=== PATIENT | female | born 1975 | race Caucasian/White ===

== ENCOUNTER 2023-02-04 01:10 | Outpatient (CLI) | payer OTHER, SELFPAY ==
--- NOTE | 2023-02-04 07:30 | DI.MAMMO_ITS ---
Exam(s) MAMMO SCREENING EXAM: MAMMO SCREENING CLINICAL HISTORY: screening,Z12.39 TECHNIQUE: Bilateral full field digital CC and MLO mammographic images were obtained with 3D tomosyn thesis and utilizing computer aided detection (CAD). COMPARISON: Available for comparison. FINDINGS: Masses/Architectural Distortion: None seen. Microcalcifications: No suspicious pleomorphic-type are seen. Skin Thickening/Nipple Retraction: None. IMPRESSION: 1. No significant interval change with no specific features of malignancy noted. 2. Unless there is more urgent need, screening mammography is recommended, as per [employer] guidelines. BI-RADS Category 1 - Negative Breast Density - Category B - Scattered areas of fibroglandular density Breast density category C or D implies that the patient has dense breast tissue. Dense breast tissue is very common and is not abnormal but dense breast tissue can make it harder to find cancer on a ma mmogram. Also, dense breast tissue may increase their breast cancer risk. This information about the result of the mammogram report was provided to the patient to raise their awareness. Use this report when you speak with the patient about their risks for breast cancer, which includes their family hist ory. At that time, you may recommend for more screening tests (Ultrasound or MRI) as they might be us eful based on their risk. A negative radiographic report should not delay biopsy if a dominant or clinically suspicious mass is present. Up to ten percent of cancers are not identified on mammography. A negative report may reinforce clinical impression. Adenosis and dense breasts may obscure an underlying neoplasm. False positive reports average 6 to 10%. Patient will receive a letter notifying them of these results.
== END 2023-02-04 01:30 ==
LOC: DI 01:11
PROVIDERS: PCP Nurse Practitioner Family; Visit Provider Nurse Practitioner Family
DX: Z12.31 Encounter for screening mammogram for malignant neoplasm of breast (principal)
CPT/HCPCS: 77063; 77067

== ENCOUNTER 2023-02-16 01:09 | Outpatient (CLI) | payer OTHER, SELFPAY ==
--- NOTE | 2023-02-16 07:00 | DI.MRI_ITS ---
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 CONTRAST MATERIAL: IV Contrast: 14 mL of Dotarem contrast administered. FINDINGS: Bones: There is no fracture or contusion pattern. No significant joint effusion or labral injury is present. No bone marrow edema is seen. The SI joints and symphysis pubis are well maintained. Soft tissues: Intrapelvic structures demonstrate no significant abnormality. Previously noted urethra l diverticula are no longer visible. There is no evidence of adjacent inflammation or abscess. No new fluid collections. Bladder appears normal. The cervix is unremarkable. Patient is status post hyster ectomy. There is no evidence of suspicious enhancement. IMPRESSION: No evidence of residual or recurrent urethral diverticula. No evidence of periurethral abscess. DATA REPOSITORY:
[2023-02-16 09:06] LABS: Abs Immature Grans 0.07 10^3/uL (0.0-0.06); Absolute Basophil Count 0.05 10^3/uL (0.0-0.2); Absolute Eosinophil Count 0.29 10^3/uL (0.0-0.7); Absolute Lymphocyte Count 2.91 10^3/uL (1.2-3.4); Absolute Monocyte Count 0.71 10^3/uL (0.1-0.8); Absolute Neutrophil Count 5.49 10^3/uL (1.2-6.7); Basophils % 0.5; HCT 44.9 % (36.0-46.0); Immature Grans % 0.7; Lymphocytes % 30.6; MCH 29.1 pg (27.0-33.0); MCHC 33.4 % (32.0-36.0); MCV 87 fL (80-95); MPV 10.6 fL (8.0-11.0); Monocytes % 7.5; Neutrophils % 57.7; Platelet Count 216 10^3/uL (130-400); RBC 5.16 10^6/uL (3.93-5.22); RDW 12.6 % (11.7-14.6); RDW-SD 40.1 fL; WBC 9.52 10^3/uL (4.4-10.8)
[2023-02-16 09:18] LABS: Hemoglobin A1C 6.7 % (<5.7)
[2023-02-16 09:32] LABS: ALT 29 U/L (14-59); AST 19 U/L (15-37); Albumin 4.1 g/dL (3.4-5.0); Alkaline Phosphatase 63 U/L (46-116); Anion Gap 8.1 mmol/L (3-11); BUN 12 mg/dL (7-18); Bilirubin, Total 0.7 mg/dL (0.2-1.0); CO2 25.9 mmol/L (21.0-32.0); CREATININE 0.8 mg/dL (0.55-1.02); Calcium 9.3 mg/dL (8.5-10.1); Chloride 107 mmol/L (98-107); Estimated GFR 91.97 (mL/min/1.73m2); Glucose 120 mg/dL (74-106); Potassium 4.6 mmol/L (3.5-5.1); Sodium 141 mmol/L (136-145); TSH (W/Ref FT4) 0.81 uIU/mL (0.36-3.74)
[2023-02-16] MEDS: Gadoterate meglumine 20 ML SYRINGE 14 ML IVP (09:39)
[2023-02-16] MEDS: Normal Saline Flush 10 ML SYR IVP (09:39)
[2023-02-17 10:07] LABS: Calculated LDL 174 mg/dL (<100); Cholesterol 252 mg/dL (<200); HDL Cholesterol 49 mg/dL (40-60); Triglyceride 149 mg/dL (<150)
[2023-02-17 13:13] LABS: Lab Add On Test DONE
== END 2023-02-16 01:29 ==
LOC: DI 01:09
PROVIDERS: PCP Nurse Practitioner Family; Visit Provider Nurse Practitioner Family
DX: N36.1 Urethral diverticulum (principal); Z90.710 Acquired absence of both cervix and uterus; R73.03 Prediabetes; L40.9 Psoriasis, unspecified; R00.0 Tachycardia, unspecified; E78.5 Hyperlipidemia, unspecified
CPT/HCPCS: 72197; 80053; 80061; 83036; 84443; 85025

== ENCOUNTER 2023-08-05 21:22 | Outpatient (REF) | payer OTHER, SELFPAY ==
[2023-08-05 08:39] LABS: Hemoglobin A1C 6.2 % (<5.7)
[2023-08-05 08:40] LABS: Calculated LDL 145 mg/dL (<100); Cholesterol 237 mg/dL (<200); HDL Cholesterol 48 mg/dL (40-60); Triglyceride 222 mg/dL (<150)
== END 2023-08-05 21:23 | disposition home or self-care (01) ==
LOC: LBN 21:22
PROVIDERS: PCP Nurse Practitioner Family; Visit Provider Nurse Practitioner Family
DX: E11.9 Type 2 diabetes mellitus without complications (principal); E78.5 Hyperlipidemia, unspecified
CPT/HCPCS: 80061; 83036

== ENCOUNTER 2024-12-21 01:23 | Outpatient (CLI) | payer OTHER, SELFPAY ==
[2024-12-21 12:43] LABS: Abs Immature Grans 0.07 10^3/uL (0.0-0.06); Absolute Basophil Count 0.09 10^3/uL (0.0-0.2); Absolute Eosinophil Count 0.28 10^3/uL (0.0-0.7); Absolute Lymphocyte Count 2.81 10^3/uL (1.2-3.4); Absolute Monocyte Count 0.68 10^3/uL (0.1-0.8); Absolute Neutrophil Count 7.01 10^3/uL (1.2-6.7); Basophils % 0.8 %; Eosinophils % 2.6 %; HGB 15.3 g/dL (11.2-15.7); Immature Grans % 0.6 %; Lymphocytes % 25.7 %; MCH 29.4 pg (27.0-33.0); MCHC 32.6 % (32.0-36.0); MCV 90 fL (80-95); MPV 10.9 fL (8.0-11.0); Monocytes % 6.2 %; Neutrophils % 64.1 %; Platelet Count 243 10^3/uL (130-400); RDW 12.8 % (11.7-14.6); RDW-SD 42.4 fL; WBC 10.94 10^3/uL (4.4-10.8)
[2024-12-21 12:56] LABS: ALT 22 U/L (14-59); AST 17 U/L (15-37); Albumin 3.9 g/dL (3.4-5.0); Alkaline Phosphatase 69 U/L (46-116); Anion Gap 7.6 mmol/L (3-11); BUN 10 mg/dL (7-18); Bilirubin, Total 0.57 mg/dL (0.2-1.0); CO2 25.4 mmol/L (21.0-32.0); CREATININE 0.7 mg/dL (0.55-1.02); Calcium 9.3 mg/dL (8.5-10.1); Calculated LDL 145 mg/dL (<100); Chloride 106 mmol/L (98-107); Cholesterol 224 mg/dL (<200); Estimated GFR 106.62 (mL/min/1.73m2); Glucose 122 mg/dL (74-106); HDL Cholesterol 46 mg/dL (40-60); Potassium 4.3 mmol/L (3.5-5.1); Sodium 139 mmol/L (136-145); Total Protein 7.1 g/dL (6.4-8.2); Triglyceride 168 mg/dL (<150)
[2024-12-21 19:20] LABS: HIV-1/2 Ag & Ab Screen Negative (Negative)
[2024-12-21 20:43] LABS: Hepatitis C Ab w Rflx HCV PCR Negative (Negative)
== END 2024-12-21 01:24 | disposition home or self-care (01) ==
LOC: LOS 01:23
PROVIDERS: PCP Nurse Practitioner Family; Visit Provider Nurse Practitioner Family
DX: Z11.59 Encounter for screening for other viral diseases (principal); L40.9 Psoriasis, unspecified; E11.9 Type 2 diabetes mellitus without complications; Z11.4 Encounter for screening for human immunodeficiency virus [HIV]
CPT/HCPCS: 36415; 80053; 80061; 86803; 87389; 85025

== ENCOUNTER 2024-12-21 13:52 | Outpatient (REF) | payer OTHER, SELFPAY ==
[2024-12-21 13:48] LABS: Microalb ug/mg Crea 9.3 ug/mg Cr
== END 2024-12-21 13:53 | disposition home or self-care (01) ==
LOC: NCHCN 13:52
PROVIDERS: PCP Nurse Practitioner Family; Visit Provider Nurse Practitioner Family
DX: E11.9 Type 2 diabetes mellitus without complications (principal)
CPT/HCPCS: 82043; 82570

== ENCOUNTER 2025-01-02 11:31 | Outpatient (CLI) | payer OTHER, SELFPAY ==
--- NOTE | 2025-01-02 11:15 | DI.RAD_ITS ---
Exam(s) XR CHEST 2V PA LATERAL EXAM: XR CHEST 2V PA LATERAL CLINICAL HISTORY: cough, recent abx for clinical pneumonia R05.9 TECHNIQUE: 2D digital imaging was performed of the chest. Two images were obtained. PA and lateral views were obtained. COMPARISON: No exams were available for comparison FINDINGS: MEDIASTINUM: Normal. HEART: Normal. PULMONARY VASCULATURE: Normal. LUNGS: Clear. PLEURAL SPACE: No pleural effusion or pneumothorax. BONE:Within normal limits for the patient's age. OTHER FINDINGS:Normal. IMPRESSION: No acute pulmonary findings. DATA REPOSITORY: RADIATION DOSE DELIVERED:
== END 2025-01-02 11:51 ==
LOC: DI 11:32
PROVIDERS: PCP Nurse Practitioner Family; Visit Provider Nurse Practitioner Family
DX: R05.9 Cough, unspecified (principal)
CPT/HCPCS: 71046

== ENCOUNTER 2025-01-10 01:48 | Outpatient (CLI) | payer OTHER, SELFPAY ==
--- NOTE | 2025-01-10 07:47 | DI.MAMMO_ITS ---
Exam(s) MAMMO SCREENING EXAM: MAMMO SCREENING CLINICAL HISTORY: screening,z12.39 TECHNIQUE: Mammograms were interpreted according to the usual protocol including computer analysis w [employer] CAD system, tomosynthesis and C-view imaging. COMPARISON: 2017 through 2022 FINDINGS: The breasts are composed of scattered fibroglandular densities, Breast Density category B. No suspicious masses or suspicious microcalcifications are seen. No skin thickening or abnormal axillary lymph nodes are seen. There has been no significant change from prior exams. IMPRESSION: BI-RADS Category 1, Negative mammogram Yearly screening mammography is recommended. Breast Density - Category B, scattered fibroglandular densities. A negative radiographic report should not delay biopsy if a dominant or clinically suspicious mass is present. Up to ten percent of cancers are not identified on mammography. A negative report may reinforce clinical impression. Adenosis and dense breasts may obscure an underlying neoplasm. False positive reports average 6 to 10%. Patient will receive a letter notifying them of these results.
== END 2025-01-10 02:08 ==
LOC: DI 01:48
PROVIDERS: PCP Nurse Practitioner Family; Visit Provider Nurse Practitioner Family
DX: Z12.31 Encounter for screening mammogram for malignant neoplasm of breast (principal); R92.323 Mammographic fibroglandular density, bilateral breasts
CPT/HCPCS: 77063; 77067

== ENCOUNTER 2025-05-02 11:34 | Outpatient (CLI) | payer OTHER, SELFPAY ==
[2025-05-02 11:44] LABS: Abs Immature Grans 0.02 10^3/uL (0.0-0.06); Absolute Basophil Count 0.07 10^3/uL (0.0-0.2); Absolute Eosinophil Count 0.18 10^3/uL (0.0-0.7); Absolute Lymphocyte Count 3.21 10^3/uL (1.2-3.4); Absolute Monocyte Count 0.61 10^3/uL (0.1-0.8); Absolute Neutrophil Count 5.03 10^3/uL (1.2-6.7); Basophils % 0.8 %; HCT 45.8 % (36.0-46.0); HGB 15.3 g/dL (11.2-15.7); Immature Grans % 0.2 %; Lymphocytes % 35.2 %; MCH 29.5 pg (27.0-33.0); MCHC 33.4 % (32.0-36.0); MCV 88 fL (80-95); MPV 10.7 fL (8.0-11.0); Monocytes % 6.7 %; Neutrophils % 55.1 %; Platelet Count 211 10^3/uL (130-400); RBC 5.19 10^6/uL (3.93-5.22); RDW 12.2 % (11.7-14.6); RDW-SD 39.8 fL; WBC 9.12 10^3/uL (4.4-10.8)
[2025-05-02 12:36] LABS: ALT 42 U/L (14-59); AST 24 U/L (15-37); Albumin 4.1 g/dL (3.4-5.0); Alkaline Phosphatase 70 U/L (46-116); Anion Gap 7.9 mmol/L (3-11); BUN 9 mg/dL (7-18); Bilirubin, Total 0.7 mg/dL (0.2-1.0); CO2 29.1 mmol/L (21.0-32.0); Calcium 9.2 mg/dL (8.5-10.1); Chloride 103 mmol/L (98-107); Glucose 124 mg/dL (74-106); Lipase 46 U/L (<78); Potassium 4.1 mmol/L (3.5-5.1); Sodium 140 mmol/L (136-145); Total Protein 7.3 g/dL (6.4-8.2)
[2025-05-02 13:49] LABS: CREATININE 0.6 mg/dL (0.55-1.02); Estimated GFR 110.65 (mL/min/1.73m2)
[2025-05-03 15:39] LABS: Amylase 60 U/L (25-115)
== END 2025-05-02 11:35 | disposition home or self-care (01) ==
LOC: LBO 11:35
PROVIDERS: PCP Nurse Practitioner Family; Visit Provider Dermatology
DX: K59.00 Constipation, unspecified (principal); R10.9 Unspecified abdominal pain; G89.29 Other chronic pain
CPT/HCPCS: 36415; 80053; 83690; 82150; 85025

== ENCOUNTER 2025-05-20 06:07 | Day surgery (SDC) | payer OTHER, SELFPAY ==
[2025-05-20 06:38] VITALS: BP 110/70; PULSE 94; RESP 16; TEMP 36.6; O2SAT 97
[2025-05-20] MEDS: Na Phosphate Enema-Adult 133 ML BTL PR (06:52)
[2025-05-20] MEDS: Lactated Ringers 1,000 ML 80 ML IV (07:11)
--- NOTE | 2025-05-20 07:23 | W.ANESPRE ---
General Info Date of Service Date Performed: 05/20/25 Height: 5 ft 6 in Weight: 76.8 kg Body Mass Index (BMI): 27.3 Surgical Procedure: Operation Date: 05/20/25 07:40 Proposed Procedure Side Surgeon p Exam Under Anesthesia, External Hemorrhoids, ? Anal Fissure Edmund Morrow MD Meds Allergies and Home Medications Allergies Allergy/AdvReac Type Severity Reaction Status Date / Time adalimumab (From Humira) Allergy Unknown rash Verified 05/20/25 06:34 pollen extracts Allergy Unknown Swelling/Ed Verified 05/20/25 06:34 brooke risankizumab-rzaa (From Allergy Other (See Verified 05/15/25 11:13 Skyrizi) Comment) amoxicillin (From Augmentin) AdvReac Severe Hives Verified 05/15/25 11:13 clavulanic acid (From AdvReac Severe Hives Verified 05/15/25 11:13 Augmentin) Home Medication ?Medication ?Instructions ?Recorded estradiol 1 mg tablet 1 mg PO DAILY #90 tabs 12/21/24 metoprolol succinate 25 mg 25 mg PO DAILY #90 tabs 12/21/24 tablet,extended release 24 hr rosuvastatin 10 mg tablet 10 mg PO DAILY #90 tabs 12/23/24 albuterol sulfate 90 mcg/actuation 2 inh inhalation Q6H PRN shortness 01/02/25 aerosol inhaler of breath or wheezing #18 grams apremilast 30 mg tablet (Otezla) 30 mg PO BID 04/10/25 docusate sodium 100 mg capsule 100 mg PO DAILY 05/15/25 (Colace) Current Visit Medications: Current Medications Generic Name Dose Route Start Last Admin Trade Name Devika PRN Reason Stop Dose Admin Ringer's Solution 1,000 mls @ 80 mls/hr 05/20/25 06:00 05/20/25 07:11 IV 05/20/25 23:59 80 mls/hr INFUSION REKHA Administration IV Miscellaneous Supplies 1 each 05/20/25 06:00 Iv Access IV 05/20/25 23:59 DIRECTED REKHA Sodium Biphosphate/Sodium Phosphate 133 ml 05/20/25 06:00 05/20/25 06:52 Na Phosphate Enema-Adult 133 Ml Btl NE 05/20/25 23:59 2 btl DIRECTED REKHA Administration Sodium Chloride 0 ml 05/20/25 06:00 Normal Saline Flush 10 Ml Syr IV 05/20/25 23:59 PRN PRN Sodium Chloride 0 ml 05/20/25 06:00 Normal Saline 10 Ml Vial IJ 05/20/25 23:59 DIRECTED PRN Sterile Water 0 ml 05/20/25 06:00 Water,Injection,Sterile 10 Ml Vial IJ 05/20/25 23:59 DIRECTED PRN PFSH Active Problems Active Problems: Problem Status Onset Code Nasal vestibulitis Acute J34.89 Type 2 diabetes mellitus Chronic E11.9 Psoriasis Chronic L40.9 Hyperlipidemia Chronic E78.5 Irritable bowel syndrome Chronic K58.9 Internal hemorrhoids Chronic K64.8 Rectal bleeding Chronic K62.5 Sinus tachycardia Chronic R00.0 Surgical menopause on hormone replacement therapy Chronic E89.40, Z79.890 Allergic rhinitis Chronic J30.9 Chronic pain of right wrist Chronic M25.531, G89.29 Medical History Medical History Urethral diverticulum Surgical History Surgical History History of colonoscopy History of rectal surgery hemorrhoid banding S/P right oophorectomy (~2001) S/P laparoscopic hysterectomy (~2001) with right oophrectomy History of bilateral tubal ligation S/P left oophorectomy (~2000) S/P urological surgery (01/01/21) Excision of urethral diverticulum S/P excision of lipoma S/P medial meniscus repair of left knee H/O section History of carpal tunnel surgery Bilateral Tobacco Smoking/Tobacco Use Status: Former Tobacco Use Passive smoking exposure: Yes Second hand exposure: Yes (As a child) Alcohol Alcohol Intake: current Alcohol intake frequency: a few times a month Alcohol type: beer, wine and hard liquor Details: 6 or more drinks monthly or less Substance Use Substance use: Never Substance use type: does not use Prental History History 2 Para 2 Hx # Term Pregnancies Multiple births Hx # Pregnancies Ectopic pregnancies AB induced Hx Number of Living Children 2 AB spontaneous Vital Signs and Lab Results Vital Signs Most Recent Vital Signs in EMR: Most Recent Vital Signs Temp Pulse Resp BP Pulse Ox 36.6 C 94 H 16 110/70 97 05/20/25 06:38 05/20/25 06:38 05/20/25 06:38 05/20/25 06:38 05/20/25 06:38 Lab Results Complete Blood Count: WBC, (4.4-10.8) 9.12 10^3/uL 05/02/25, 11:30 RBC, (3.93-5.22) 5.19 10^6/uL 05/02/25, 11:30 Hgb, (11.2-15.7) 15.3 g/dL 05/02/25, 11:30 Hct, (36.0-46.0) 45.8 % 05/02/25, 11:30 Plt Count, (130-400) 211 10^3/uL 05/02/25, 11:30 Complete Metabolic Panel: Sodium, (136-145) 140 mmol/L 05/02/25, 11:30 Potassium, (3.5-5.1) 4.1 mmol/L 05/02/25, 11:30 Chloride, (98-107) 103 mmol/L 05/02/25, 11:30 Carbon Dioxide, (21.0-32.0) 29.1 mmol/L 05/02/25, 11:30 BUN, (7-18) 9 mg/dL 05/02/25, 11:30 Creatinine, (0.55-1.02) 0.6 mg/dL 05/02/25, 11:30 Est GFR (CKD-EPI 2020), (mL/min/1.73m2) 110.65 05/02/25, 11:30 Calcium, (8.5-10.1) 9.2 mg/dL 05/02/25, 11:30 Albumin, (3.4-5.0) 4.1 g/dL 05/02/25, 11:30 Glucose, (74-106) 124 mg/dL H 05/02/25, 11:30 Liver Function Panel: ALT, (14-59) 42 U/L 05/02/25, 11:30 AST, (15-37) 24 U/L 05/02/25, 11:30 Pancreas Panel: Amylase, (25-115) 60 U/L 05/02/25, 11:30 Lipase, (<78) 46 U/L 05/02/25, 11:30 Anesthesia Assessment and Plan Anesthesia History Personal History: No History of Anesthesia Complications Family History: No Family History of Anesthesia Complications Exercise Tolerance Exercise Tolerance: Metabolic Equivalents>4 Pertinent Negatives Pertinent Negatives: No Symptoms of GERD Cardiac & Pulmonary Exam Cardiac Exam: Normal S1/S2 Heart Sounds Pulmonary Exam: Clear Bilateral Breath Sounds Implantable Cardiac Device Does patient have a Pacemaker or an ICD?: No Airway Exam Known Difficult Airway: No Mallampati Class: 2 Mouth Opening: Normal (> 3cm) Thyromental Distance: Greater than 3 cm Neck Range of Motion: Full ROM Neck Circumference: Normal Teeth Condition: Normal Dentition ASA Classification ASA Score: ASA 2 Emergency Case?: No NPO Status NPO Status: NPO Clears >2 hours, Solids >8 hours Status Status: Not Relevant due to Medical History (Hysterectomy) Anesthesia Plan Resuscitation Status: Full Code Anesthesia Technique: General Anesthesia Airway Planned: Natural Airway Monitors Used: Standard Monitors
[2025-05-20 07:25] VITALS: BMI 27.3
--- NOTE | 2025-05-20 08:05 | ROE_ITS ---
Operative Note Operative Note Refer to Anesthesia Record Procedure Description: PROCEDURES PERFORMED: 1. Exam under anesthesia PREOPERATIVE DIAGNOSIS: anal fissure POSTOPERATIVE DIAGNOSIS: anal fistula and anal fissure, minimal grade 1 internal hemorrhoids. SURGEON: Charlee Morrow MD INDICATION FOR PROCEDURE: The patient is a 49 yo woman with long-standing autoimmune conditions who has had anorectal bleeding for years with no definitive diagnosis. Over the last few months, she went off of her immunosuppressive medications for respiratory problems and then developed perianal discomfort which is a new symptom for her. She has also developed a lump in this area as well. Paradoxically, the bleeding has susbsided it would seem. FINDINGS: In the posterior midline there is some heaped up perianal tissue. This is not an external hemorrhoid but rather inflamed/engorged tissue overlying/surrounding an obvious fissure which is pretty far out/distal on the anoderm. There is no lesion within the anal canal itself but there does appear to be a fistula?like connection between the external anoderm defect and an internal opening near the dentate line. Pressure along this area does produce some mild pus?like discharge from both openings external and internal. SURVEILLANCE interval/FOLLOW-UP: Will prescribe a fissure cream. Will see when she is getting back on immunosuppressant medications. I am definitely concerned that this could be a Crohn's/inflammatory bowel disease related lesion. I think she needs to have a colonoscopy to see if we can get a diagnosis with biopsies elsewhere in her colon. SPECIMENS: None EBL: Minimal COMPLICATIONS: None Procedure in detail: The patient gave written consent and was in agreement with the indications, the potential risks as well as the benefits of the procedure. She was taken to the endoscopy suite/OR for exam under anesthesia. A timeout was performed and when we were all in agreement we began the procedure. Anesthesia was given to her and she tolerated it well. She was in left lateral decubitus position and I examined her perianal area. In the posterior midline is heaped up anoderm tissue. Gentle spreading of this tissue reveals a fissure underneath and within. It does appear to have a tunnel/pit to it, suspicious in appearance for a possible fistula. Next, A well?lubricated anoscope was gently introduced. The anal canal was carefully inspected and appeared normal. Mild/minimal internal hemorrhoid disease was visible at all 3 columns. In the posterior midline at/near the dentate line is a small opening consistent with the internal connection of the fistula. Gentle pressure of the anal canal produces some mucus/pus?appearing discharge from both aspects external and internal. I decided against any internal hemorrhoid banding considering the mild appearan ce of the disease. Further, hemorrhoid disease is NOT the cause of her issue. I did not biopsy the openings of this lesion considering it has only been going on for a few weeks and I worry about the possibility of making this acutely worse when it actually appears to be healing. That being said, if a fistula tract does heal over completely, the risks and benefits of surgical intervention will have to be carefully weighed in consideration with likely inflammatory bowel disease and/or immuno-suppressing medications. She tolerated the procedure well and she was taken to the PACU/day surgery in hemodynamically stable condition. Date of Procedure: 05/20/25
--- NOTE | 2025-05-20 08:28 | W.ANESPOSTOP ---
Postoperative Evaluation Date, Time and Location Date Performed: 05/20/25 Time Performed: 08:28 Patient Location: Day Surgery Unit Vital Signs Most Recent Imported Vital Signs: Most Recent Vital Signs Temp Pulse Resp BP Pulse Ox 36.6 C 94 H 16 110/70 97 05/20/25 06:38 05/20/25 06:38 05/20/25 06:38 05/20/25 06:38 05/20/25 06:38 Pain Score Most Recent Pain Score: Most Recent Pain Score Pain Level 3 05/20/25 06:38 Assessment Mental Status: Awake (Alert & Oriented to Patient Baseline) Airway and Respiratory Function: Patent airway with normal (patient baseline) respiratory exam Cardiovascular Function: Hemodynamically Stable Hydration Status: Adequately Hydrated Nausea & Vomiting: No Nausea or Vomiting Pain: Pt. Denies Any Pain Peripheral Nerve Block: Patient did not receive a nerve block
--- NOTE | 2025-05-20 08:40 | W.PM.DSUDISC ---
Date of service: 05/20/25 Discharge Plan Disposition Patient Disposition: Home Condition: Good Discharge Details Attending Provider: Edmund Morrow Primary Care Provider: Mary Alice Rosen Home Meds and New Rx's Prescriptions: No Action metoprolol succinate 25 mg tablet extended release 24 hr 25 mg PO DAILY Qty: 90 3RF estradiol 1 mg tablet 1 mg PO DAILY Qty: 90 3RF Otezla 30 mg tablet 30 mg PO BID rosuvastatin 10 mg tablet 10 mg PO DAILY Qty: 90 3RF albuterol sulfate 90 mcg/actuation HFA aerosol inhaler 2 inh inhalation Q6H PRN (Reason: shortness of breath or wheezing) Qty: 18 4RF docusate sodium [Colace] 100 mg capsule 100 mg PO DAILY Discharge Instructions Additional Instructions: FINDINGS: You do have a fissure and further, it looks like the fissure has 2 openings, 1 on the inside and 1 on the outside which is what we call a fistula. This does not necessarily mean you have inflammatory bowel disease/Crohn's disease but it is a very common condition of those. There is something called fistulizing Crohn's disease and I wonder if this is happening because you have been off of your usual immunosuppressive medication following your respiratory problems. We will prescribe some anal fissure cream for a month or 2 to see if this helps at all and at the same time, you can consider your immunosuppressant medication options. I do think it is imperative that we do a colonoscopy at some point in the near future for diagnostic purposes. Activity:: Activity as Tolerated Diet:: As Tolerated
[2025-05-20 08:43] VITALS: BP 110/70; PULSE 94; RESP 16; TEMP 36.6; O2SAT 97
[2025-05-20 09:14] VITALS: BP 114/77; PULSE 83; RESP 16; TEMP 36.4; O2SAT 97
== END 2025-05-20 06:08 | disposition home or self-care (01) ==
PROVIDERS: PCP Nurse Practitioner Family; Visit Provider Student in an Organized Health Care Education/Training Program
PROC: (CPT 45990; principal; 2025-05-20 07:30)
DX: K60.2 Anal fissure, unspecified (principal); K60.50 Anorectal fistula, unspecified; K64.0 First degree hemorrhoids
CPT/HCPCS: 45990; J2003; J2704; J3010

== ENCOUNTER 2025-06-14 12:30 | Outpatient (CLI) | payer SELFPAY ==
[2025-06-17 13:07] LABS: TB Interpretation Negative (Negative); TB1 Ag minus Nil 0.00 IU/mL; TB2 Ag minus Nil 0.00 IU/mL
== END 2025-06-14 12:31 | disposition home or self-care (01) ==
LOC: LBO 07-11 12:31
PROVIDERS: PCP Family Medicine; Visit Provider Nurse Practitioner Family
DX: Z02.1 Encounter for pre-employment examination (principal)
CPT/HCPCS: 86480

== ENCOUNTER 2025-06-28 07:32 | Day surgery (SDC) | payer OTHER, SELFPAY ==
[2025-06-28 08:04] VITALS: BP 117/75; PULSE 84; RESP 16; TEMP 36.3; O2SAT 98
--- NOTE | 2025-06-28 08:40 | W.ANESPRE ---
General Info Date of Service Date Performed: 06/28/25 Height: 5 ft 6 in Weight: 76.9 kg Body Mass Index (BMI): 27.3 Surgical Procedure: Operation Date: 06/28/25 08:55 Proposed Procedure Side Surgeon p Colonoscopy/Gastroscopy Emdund Morrow MD s Fisulotomy/ectomy, EUA Edmund Morrow MD Meds Allergies and Home Medications Allergies Allergy/AdvReac Type Severity Reaction Status Date / Time adalimumab (From Humira) Allergy Unknown rash Verified 06/28/25 07:58 pollen extracts Allergy Unknown Swelling/Ed Verified 06/28/25 07:58 brooke risankizumab-rzaa (From Allergy Other (See Verified 06/28/25 07:58 Skyrizi) Comment) amoxicillin (From Augmentin) AdvReac Severe Hives Verified 06/28/25 07:58 clavulanic acid (From AdvReac Severe Hives Verified 06/28/25 07:58 Augmentin) Home Medication ?Medication ?Instructions ?Recorded estradiol 1 mg tablet 1 mg PO DAILY #90 tabs 12/21/24 metoprolol succinate 25 mg 25 mg PO DAILY #90 tabs 12/21/24 tablet,extended release 24 hr rosuvastatin 10 mg tablet 10 mg PO DAILY #90 tabs 12/23/24 albuterol sulfate 90 mcg/actuation 2 inh inhalation Q6H PRN shortness 01/02/25 aerosol inhaler of breath or wheezing #18 grams apremilast 30 mg tablet (Otezla) 30 mg PO BID 04/10/25 docusate sodium 100 mg capsule 100 mg PO DAILY 05/15/25 (Colace) cetirizine 10 mg capsule (Allergy 10 mg PO ONCE 06/28/25 Relief (cetirizine)) Current Visit Medications: Current Medications Generic Name Dose Route Start Last Admin Trade Name Freq PRN Reason Stop Dose Admin Ringer's Solution 1,000 mls @ 80 mls/hr 06/28/25 06:00 IV 06/28/25 23:59 INFUSION REKHA IV Miscellaneous Supplies 1 each 06/28/25 06:00 Iv Access IV 06/28/25 23:59 DIRECTED REKHA Sodium Chloride 0 ml 06/28/25 06:00 Normal Saline Flush 10 Ml Syr IV 06/28/25 23:59 PRN PRN Sodium Chloride 0 ml 06/28/25 06:00 Normal Saline 10 Ml Vial IJ 06/28/25 23:59 DIRECTED PRN Sterile Water 0 ml 06/28/25 06:00 Water,Injection,Sterile 10 Ml Vial IJ 06/28/25 23:59 DIRECTED PRN PFSH Active Problems Active Problems: Problem Status Onset Code Nasal vestibulitis Acute J34.89 Type 2 diabetes mellitus Chronic E11.9 Psoriasis Chronic L40.9 Hyperlipidemia Chronic E78.5 Irritable bowel syndrome Chronic K58.9 Internal hemorrhoids Chronic K64.8 Rectal bleeding Chronic K62.5 Sinus tachycardia Chronic R00.0 Surgical menopause on hormone replacement therapy Chronic E89.40, Z79.890 Allergic rhinitis Chronic J30.9 Chronic pain of right wrist Chronic M25.531, G89.29 Medical History Medical History Urethral diverticulum Surgical History Surgical History History of colonoscopy History of rectal surgery hemorrhoid banding S/P right oophorectomy (~2001) S/P laparoscopic hysterectomy (~2001) with right oophrectomy History of bilateral tubal ligation S/P left oophorectomy (~2000) S/P urological surgery (01/01/21) Excision of urethral diverticulum S/P excision of lipoma S/P medial meniscus repair of left knee H/O section History of carpal tunnel surgery Bilateral Tobacco Smoking/Tobacco Use Status: Former Tobacco Use Passive smoking exposure: Yes Second hand exposure: Yes (As a child) Alcohol Alcohol Intake: current Alcohol intake frequency: a few times a month Alcohol type: beer, wine and hard liquor Details: 6 or more drinks monthly or less Substance Use Substance use: Never Substance use type: does not use Prental History History 2 Para 2 Hx # Term Pregnancies Multiple births Hx # Pregnancies Ectopic pregnancies AB induced Hx Number of Living Children 2 AB spontaneous Vital Signs and Lab Results Vital Signs Most Recent Vital Signs in EMR: Most Recent Vital Signs Temp Pulse Resp BP Pulse Ox 36.3 C L 84 16 117/75 98 06/28/25 08:04 06/28/25 08:04 06/28/25 08:04 06/28/25 08:04 06/28/25 08:04 Point of Care Results Point of Care Results: Finger Stick Blood Glucose 130 06/28/25 08:20 Anesthesia Assessment and Plan Anesthesia History Personal History: No History of Anesthesia Complications Family History: No Family History of Anesthesia Complications Exercise Tolerance Exercise Tolerance: Metabolic Equivalents>4 Pertinent Negatives Pertinent Negatives: No Major Cardiovascular Symptoms or Complaints and No Major Pulmonary Symptoms or Complaints Cardiac & Pulmonary Exam Cardiac Exam: Normal S1/S2 Heart Sounds Pulmonary Exam: Clear Bilateral Breath Sounds Implantable Cardiac Device Does patient have a Pacemaker or an ICD?: No Airway Exam Known Difficult Airway: No Mallampati Class: 2 Mouth Opening: Normal (> 3cm) Thyromental Distance: Greater than 3 cm Neck Range of Motion: Full ROM Neck Circumference: Normal Teeth Condition: Normal Dentition ASA Classification ASA Score: ASA 2 Emergency Case?: No NPO Status NPO Status: NPO Clears >2 hours, Solids >8 hours Status Status: Not Relevant due to Medical History and History of Hysterectomy Anesthesia Plan Resuscitation Status: Full Code Anesthesia Technique: General Anesthesia Airway Planned: Natural Airway Monitors Used: Standard Monitors
[2025-06-28 08:43] VITALS: BMI 27.3
[2025-06-28] MEDS: Lactated Ringers 1,000 ML 80 ML IV (09:00)
--- NOTE | 2025-06-28 09:00 | W.SURGCON ---
Date of service: 06/28/25 Time of Service: 09:00 Assessment and Plan Assessment and plan (1) Rectal bleeding: Status: Chronic Assessment and plan: 49 yo woman with autoimmune conditions at baseline. She has ongoing symtoms around her anal area which could represent crohn's disease. She has bleeding which could represent Crohn's disease. She had what appeared to be a fistula last time. PLAN: EGD c-scope EUA - likely biopsy and fistulotomy. History of Present Illness Narrative: Comes in today for comprehensive evaluation of her GI tract. She continues to have bleeding in her stools which are going on for many years. She also sees blood when she wipes. She still having issues with pain and tenderness around her anal area. The cream has not helped. She is currently off her immunosuppressing medication. Her psoriasis is very active right now with many lesions on her face and scalp. However her joint discomfort has resolved - which was suspected to be a side effect of the meds. PFSH All Active Problems Nasal vestibulitis (Acute) Type 2 diabetes mellitus (Chronic) Psoriasis (Chronic) Hyperlipidemia (Chronic) Irritable bowel syndrome (Chronic) Internal hemorrhoids (Chronic) Rectal bleeding (Chronic) Sinus tachycardia (Chronic) Surgical menopause on hormone replacement therapy (Chronic) Allergic rhinitis (Chronic) Chronic pain of right wrist (Chronic) Scaphoid cyst. MRI 2019 Medical History Urethral diverticulum Surgical History History of colonoscopy History of rectal surgery hemorrhoid banding S/P right oophorectomy (~2001) S/P laparoscopic hysterectomy (~2001) with right oophrectomy History of bilateral tubal ligation S/P left oophorectomy (~2000) S/P urological surgery (01/01/21) Excision of urethral diverticulum S/P excision of lipoma S/P medial meniscus repair of left knee H/O section History of carpal tunnel surgery Bilateral Family History Mother Diabetes Father , 54 from heart failure Diabetes Heart disease Hypertension Hyperlipidemia Myocardial infarction Sister Hyperlipidemia Diabetes Brother Hyperlipidemia Son Asthma Daughter No problems noted. Maternal Grandfather , 80 Stroke Colon cancer Paternal Grandfather , 85 Depression Heart disease Maternal Grandmother , 69 Emphysema of lung Paternal Grandmother , 79 Breast cancer Stomach cancer Social History Smoking/Tobacco Use Status: Former Tobacco Use tobacco type: cigarettes Second Hand Exposure: Yes (As a child) Smoking risk assessment performed?: Yes Alcohol Intake: current Alcohol Intake frequency: a few times a month Alcohol type: beer, wine and hard liquor Details: 6 or more drinks monthly or less Drug use: Never Substance use type: does not use Adopted: No Caregiver/Support person: No Household members: spouse Housing: house Number of Children: 2 number of grandchildren: 2 Communication Needs: None Education Level: college Details: Associates Degree RN- Currently working on BSN Do you need help understanding health information?: Never current occupation: RN Pets and animals: Yes Pets and animals: dog(s) Sexually active: Yes Do you think of yourself as: straight/heterosexual Current gender identity: female What is your relationship status?: How often do you talk on the phone with friends or family?: three or more times per week How often do you get together with friends or relatives?: three or more times per week Do you belong to any clubs or organized social groups?: no Panel score (0-1 are the most socially isolated patients): 2 What type of physical activity do you participate in: decline to answer Duration: decline to answer Frequency: decline to answer Alexandrea/Restorationist: Alevism Special alexandrea needs: No Seatbelt use: always Helmet use: Yes Helmet use: always Drive intox or ride w/intox caterpillar driver: No Firearms in home: Yes Firearms unloaded and locked: Yes Do you feel safe at home: Yes Do you feel safe in your relationship?: Yes Would you like helpful sources: No Female Reproductive History Menstrual Menopause type: surgical History History 2 Para 2 Hx # Term Pregnancies Multiple births Hx # Pregnancies Ectopic pregnancies AB induced Hx Number of Living Children 2 AB spontaneous Exam Narrative Exam Narrative: Gen: Non-toxic, comfortable and interactive Neuro: Alert and oriented x3 Psych: Good mood and affect. Good insight and understanding into condition. Chest: Non-labored breathing, no wheezing, no visible shortness of breath. Heart: Regular Results Last Vital Signs Temp 97.3 F L 06/28/25 08:04 Pulse 84 06/28/25 08:04 Resp 16 06/28/25 08:04 BP 117/75 06/28/25 08:04 Pulse Ox 98 06/28/25 08:04
--- NOTE | 2025-06-28 09:26 | BOWEL_PTH ---
PATIENT: Lilia Sandoval LOC: [facility] U#:[id number] AGE/SX: 49/F ROOM: RE06/28/[address]: Edmund Morrow : 1975 BED: DIS: 06/28/2025 SPEC #: [id number] RECD: 06/28/25 12:24 STATUS: IKER RE #: [id number] DIANE: 06/28/25 09:[address]: Edmund Morrow DEPT: Surgical Specimen RECD BY: Zahra Torrez ENTERED: 06/28/25 12:26 SP TYPE: Bowel OTHR DR: Estrella Decker Tissues: 1 - BIOPSY BOWEL 2 - STOMACH BIOPSY 3 - STOMACH BIOPSY 4 - BIOPSY BOWEL 5 - BIOPSY BOWEL 6 - BIOPSY BOWEL 7 - BIOPSY BOWEL 8 - BIOPSY BOWEL Procedures: GROSS AND MICRO LEVEL 4 GROSS AND MICRO LEVEL 3 SPECIAL STAIN 1 Comments: [id number]
[2025-06-28] MEDS: Bupivacaine 0.25% Pres-Free 30 ML VIAL (10:08)
[2025-06-28] MEDS: Bupivacaine LIPOSOME/PF 133 MG/10 ML VIAL IJ (10:09)
[2025-06-28 10:28] VITALS: BP 121/109; PULSE 58; RESP 16; TEMP 35.8; O2SAT 96
--- NOTE | 2025-06-28 10:35 | W.PM.ENDDOP ---
Date of service: 06/28/25 Time of Service: 10:35 Endoscopy Report PROCEDURE DESCRIPTION: PROCEDURES PERFORMED: 1. EGD with biopsies PREOPERATIVE DIAGNOSIS: Inflammatory bowel disease POSTOPERATIVE DIAGNOSIS: Normal foregut SURGEON: Charlee Morrow MD INDICATION FOR PROCEDURE: 49-year-old woman with significant autoimmune conditions at baseline. She has been having rectal bleeding on and off for years. EGD indicated to rule out ulcer disease in the foregut as well as any possible findings for IBD. FINDINGS: D2/D3 = normal - multiple biopsies were taken (x 4) to rule out celiac disease D1/bulb = normal - no ulcers or inflammation Pylorus = normal Antrum = normal appearance, no ulcers, cold forceps biopsies were taken to rule out H. pylori routinely Body = normal appearance, biopsies taken with cold forceps technique routinely Fundus = normal mucosa, a couple small benign?appearing fundic polyps are present. The largest was biopsied with cold forceps technique to confirm benign histology. Cardia = normal Hiatus = no hiatal hernia. No hiatal defect. Distal esophagus = no inflammation, no esophagitis, no Haynes's, no stricture. I did not take biopsies here. Mid esophagus = normal Proximal esophagus/hypopharynx/vocal cords = normal SURVEILLANCE-INTERVAL/FOLLOW-UP: Follow-up with PCP, no surveillance necessary Specimens: Yes EBL: Minimal COMPLICATIONS: None Procedure in detail: The patient gave written consent and was in agreement with the indications, the potential risks as well as the benefits of the procedure. The patient was taken to the endoscopy suite and laid on her left side. Anesthesia was given which was tolerated well. We performed a timeout and we are in agreement I started the procedure. A well-lubricated endoscope was gently and carefully advanced down the esophagus, into the stomach and through the pylorus into the duodenum. The scope was then slowly withdrawn with the above-noted findings/interventions. The patient tolerated the procedure well and was then turned for colonoscopy (see separate procedure note).
--- NOTE | 2025-06-28 10:35 | W.COLOREPORT ---
Date of service: 06/28/25 Time of Service: 10:35 Colonoscopy Report Procedure Description: PROCEDURES PERFORMED: 1. Colonoscopy with cold forceps polypectomy x1 2. Biopsies PREOPERATIVE DIAGNOSIS: Inflammatory bowel disease, fistula en ano POSTOPERATIVE DIAGNOSIS: Normal terminal ileum, minimal sigmoid diverticulosis, fistula en ano SURGEON: Charlee Morrow MD INDICATION FOR PROCEDURE: the patient is a 49-year-old woman with chronic and relatively?severe autoimmune conditions and chronic rectal bleeding. Recently had exam under anesthesia showing a fistula en ano. Inflammatory bowel disease is a consideration for etiology. FINDINGS: Normal terminal ileum. Cold forceps biopsies were taken here x 4 to assess microscopically. No inflammation was seen anywhere in the colon. Non-targeted cold forceps biopsies were taken randomly of the colon mucosa. Polyps: Incidentally, a small, flat, 2-3 mm polyp was removed with cold forceps technique in the ascending colon. No other polyps anywhere else. There was minimal/scant diverticular disease isolated to just the sigmoid colon. No inflammation associated whatsoever. The patient's fistula in the posterior midline was again encountered. There is no significant internal hemorrhoid disease. Minimal external hemorrhoid disease is visible but next to the fistula and may simply be reactive. SURVEILLANCE interval/FOLLOW-UP: Pending biopsy results - likely repeat colonoscopy in 10 years for colorectal cancer screening purposes SPECIMENS: Yes EBL: Minimal COMPLICATIONS: None QUALITY of prep: Excellent Procedure in detail: The patient gave written consent and was in agreement with the indications, the potential risks as well as the benefits of the procedure. She was turned from upper endoscopy (see separate procedure note) and I started the colonoscopy portion of the exam. Digital rectal and visual examination was performed with the above?noted findings. A well-lubricated flexible colonoscope was then introduced and passed without any notable difficulty all the way to the cecum identified by the ileocecal valve and the appendiceal orifice. The terminal ileum was deeply intubated and looked normal. The scope was then slowly withdrawn with the above-noted findings. She tolerated the procedure well and we then started the exam under anesthesia/fistulotomy portion of the procedure (see separate procedure note).
--- NOTE | 2025-06-28 10:36 | W.PM.OP ---
Operative Note Operative Note Refer to Anesthesia Record Procedure Description: PROCEDURES PERFORMED: 1. Exam under anesthesia 2. Bilateral Pudendal Nerve block 3. Anoscopy 4. Fistulotomy PREOPERATIVE DIAGNOSIS: IBD, fistula en ano POSTOPERATIVE DIAGNOSIS: Same SURGEON: Charlee Morrow MD INDICATION FOR PROCEDURE: The patient is a 49-year-old woman with chronic autoimmune disease who presents with a fistula around her anus. There is concern this may represent Crohn's disease. FINDINGS: No significant internal hemorrhoid disease. Mild external hemorrhoid disease immediately next to the fistula - probably secondary reaction. Posterior midline fistula extending approximately 2-3 cm into the rectal vault midline. Standard fistulotomy performed. SURVEILLANCE interval/FOLLOW-UP: As needed SPECIMENS: Biopsies taken of the fistula tissue externally and within the anal canal. EBL: Minimal COMPLICATIONS: None Procedure in detail: The patient gave written consent and was in agreement with the indications, the potential risks as well as the benefits of the procedure. The colonoscope was removed (see separate procedure note) and I started the anal canal and perianal portion of the procedure. I prepped and draped the perineum, perianal area in the buttocks in sterile fashion with Betadine. Using a combination of Exparel and quarter percent Marcaine, I performed a bilateral pudendal nerve block as well as some local anesthetic within the anal tissue. Exam under anesthesia was performed. The fistula is clearly visible on the external anoderm. A well?lubricated anoscope was gently introduced. The anal canal was carefully inspected and looked normal with the exception of where the fistula is in the posterior midline. A lacrimal probe was used to clearly follow the external posterior?midline opening of the fistula into the rectal vault where it opened within the rectal mucosa about 2-3 cm inside.there is no significant internal hemorrhoid disease appreciated. Using needle tip cautery I opened up the fistula tract completely over top of the lacrimal probe. I took biopsies of the tissue both in the center of the fistula tract as well as the external portion of the fistula tract for biopsy purposes to assess for possible IBD. Hemostasis was achieved with pressure and cautery. The patient tolerated the procedure well and was taken to the PACU in hemodynamically stable condition. Date of Procedure: 06/28/25
--- NOTE | 2025-06-28 10:36 | W.PM.DSUDISC ---
Date of service: 06/28/25 Discharge Plan Disposition Patient Disposition: Home Condition: Good Discharge Details Attending Provider: Edmund Morrow Primary Care Provider: Estrella Decker Home Meds and New Rx's Prescriptions: No Action metoprolol succinate 25 mg tablet extended release 24 hr 25 mg PO DAILY Qty: 90 3RF estradiol 1 mg tablet 1 mg PO DAILY Qty: 90 3RF Otezla 30 mg tablet 30 mg PO BID Patient Comments: not taking rosuvastatin 10 mg tablet 10 mg PO DAILY Qty: 90 3RF albuterol sulfate 90 mcg/actuation HFA aerosol inhaler 2 inh inhalation Q6H PRN (Reason: shortness of breath or wheezing) Qty: 18 4RF Allergy Relief (cetirizine) 10 mg capsule 10 mg PO ONCE docusate sodium [Colace] 100 mg capsule 100 mg PO DAILY Discharge Instructions Additional Instructions: FINDINGS: On upper endoscopy, your stomach lining and your esophagus lining in the beginning of your small intestine all appeared normal visually. I did take routine biopsies as we discussed. A a couple of benign polyps were seen in your stomach which are completely usual, normal and nothing to worry about. They do not cause any issues. On colonoscopy, there was no inflammation seen anywhere obvious. The end of your small intestine also appeared normal. I did take biopsies in random places to look at the lining under microscope, but visually everything appeared normal. You have some tiny diverticulosis in a couple of isolated places which is absolutely nothing to worry about and has nothing to do with any of your symptoms. You do not have any significant hemorrhoid disease. You did have a fistula in your anal canal. I opened this up which is the management strategy and I also biopsied it to see if this has any relationship with inflammatory bowel disease. Crohn's disease is very commonly associated with perianal fistulas. Typically opening up the fistula allows it to heal appropriately. Occasionally they do recur and it has to be done again but that is unusual. For pain control: use 1000 mg Tylenol every 6 hours for the next 5 days. Sitz bathes can and should be used for the next couple of weeks 2 or 3 times a day and more frequently if you wish. Some bleeding and discharge will be noticed for the next couple of weeks but that should subside with time. Eat regular food and a regular diet but try to avoid anything that causes constipation. Stay hydrated. There is no restriction in any activities, simply listen to your body and do things as tolerated. Call me if there are any issues. Stand Alone Forms: Anesthesia Discharge Inst., DSU Post EGD Instructions, Colonoscopy Post Instructions, Press Abdirizak (DSU) Activity:: Activity as Tolerated Diet:: As Tolerated DS: Diagnosis Discharge Diagnosis (1) Rectal bleeding: Status: Chronic
--- NOTE | 2025-06-28 10:46 | W.ANESPOSTOP ---
Postoperative Evaluation Date, Time and Location Date Performed: 06/28/25 Time Performed: 10:32 Patient Location: Day Surgery Unit Vital Signs Most Recent Imported Vital Signs: Most Recent Vital Signs Temp Pulse Resp BP Pulse Ox 35.8 C L 58 L 16 121/109 H 96 06/28/25 10:28 06/28/25 10:28 06/28/25 10:28 06/28/25 10:28 06/28/25 10:28 Pain Score Most Recent Pain Score: Most Recent Pain Score Pain Level 0 06/28/25 10:28 Assessment Mental Status: Arousable with meaningful communication Airway and Respiratory Function: Patent airway with normal (patient baseline) respiratory exam Cardiovascular Function: Hemodynamically Stable Hydration Status: Adequately Hydrated Nausea & Vomiting: No Nausea or Vomiting Pain: Pt. Denies Any Pain Peripheral Nerve Block: Patient did not receive a nerve block
[2025-06-28 11:00] VITALS: BP 106/71; PULSE 74; RESP 16; TEMP 36.1; O2SAT 97
== END 2025-06-28 11:45 | disposition home or self-care (01) ==
PROVIDERS: PCP Family Medicine; Visit Provider Student in an Organized Health Care Education/Training Program
PROC: (CPT 45380; principal; 2025-06-28 08:45)
PROC: (CPT 45380; 2025-06-28 08:45)
DX: K62.5 Hemorrhage of anus and rectum (principal); E11.9 Type 2 diabetes mellitus without complications; L40.9 Psoriasis, unspecified; K58.9 Irritable bowel syndrome, unspecified; K57.30 Diverticulosis of large intestine without perforation or abscess without bleeding; K60.30 Anal fistula, unspecified; D13.1 Benign neoplasm of stomach; D12.2 Benign neoplasm of ascending colon; K62.89 Other specified diseases of anus and rectum
CPT/HCPCS: 45380; 43239; 88305; 88304; 88312; J0665; J0666; J2003; J2250; J2704

== ENCOUNTER 2025-09-13 10:33 | Outpatient (CLI) | payer OTHER, SELFPAY ==
[2025-09-13 15:18] LABS: Cholesterol 232 mg/dL (<200); HDL Cholesterol 54 mg/dL (>or=50)
== END 2025-09-13 10:34 | disposition home or self-care (01) ==
LOC: LOS 10:33
PROVIDERS: PCP Family Medicine; Visit Provider Family Medicine
DX: Z13.6 Encounter for screening for cardiovascular disorders (principal); E78.5 Hyperlipidemia, unspecified
CPT/HCPCS: 36415; 80061